=== PATIENT | female | born 1995 | race African-American/Black ===

== ENCOUNTER 2017-03-18 21:04 | Emergency (ER) | payer OTHER ==
[~2017-03-18] VITALS: Ht 180.3 cm; Wt 95.3 kg
--- NOTE | ~2017-03-18 | EKG ---
[address] [address] ELECTROCARDIOGRAM REPORT Name: GENTILENIKKI Room #: DEP KALLI Melo#: [id number] Admission: 03/18/17 Attend Phys: Discharge: 03/19/17 Date of : [birth year] Report #: [id number] THIS REPORT FOR: //name// [facility] ED Test Date: 2017-03-18 Test Time: 21:40:39 Pat Name: NIKKI GENTILE Department: Room: Gender: F Supply Chain Technician: : 1995 Requested By: Kurt Boothe Order Number: [id number] MD: Anant Mac Measurements Intervals [place] Rate: 84 P: 48 ND: 208 QRS: 42 QRSD: 91 T: 51 QT: 383 QTc: 453 Interpretive Statements Sinus rhythm Borderline prolonged ND interval No previous ECG available for comparison Electronically Signed On 03-19-2017 13:24:02 IT ADMINISTRATIVE ASSISTANT by Anant Mac [email or web address] <ELECTRONICALLY SIGNED> By: Anant Mac MD 03/19/17 1324 2140 2140 Anant Mac MD /MAK
[2017-03-18 21:50] LABS: HEMATOCRIT 33.6 % (37.0-47.0); HEMOGLOBIN 11.2 gm/dL (12.0-15.0); MCH 27.9 pg (26.0-34.0); MCHC 33.4 g/dL (28.0-37.0); MCV 83.6 fL (80.0-100.0); RBC 4.01 mil/uL (4.20-5.00); RDW 15.7 % (10.5-14.5); WBC 9.9 thou/uL (4.0-11.0)
[2017-03-18 22:00] LABS: URINE BILIRUBIN NEGATIVE (Negative); URINE BLOOD NEGATIVE (Negative); URINE COLOR YELLOW; URINE GLUCOSE-RANDOM* NEGATIVE (Negative); URINE KETONES NEGATIVE (Negative); URINE LEUKOCYTES-REFLEX NEGATIVE (Negative); URINE PROTEIN (DIPSTICK) NEGATIVE (Negative); URINE SPECIFIC GRAVITY <= 1.005 (1.005-1.035); URINE UROBILINOGEN 0.2 E.U./dl (0.2-1.0)
[2017-03-18 22:06] LABS: ANION GAP 6 mmol/L (7-16); BUN 12 mg/dL (7-18); CHLORIDE 108 mmol/L (98-107); CO2 27 mmol/L (21-32); CREATININE 0.9 mg/dL (0.6-1.0); GLUCOSE 102 mg/dL (74-106); POTASSIUM 3.6 mmol/L (3.5-5.1); SODIUM 141 mmol/L (136-145)
[2017-03-18 22:08] LABS: AMP/METHAMP Negative (Negative); BARBITURATES Negative (Negative); BENZODIAZEPINES Negative (Negative); COCAINE Negative (Negative); METHADONE Negative (Negative); OPIATES Negative (Negative); PCP Negative (Negative); THC POSITIVE (Negative)
[2017-03-18 22:15] LABS: TROPONIN-I < 0.04 ng/mL (<0.06)
[2017-03-18] MEDS ORDERED: ZPAK PO (23:28)
[2017-03-18] MEDS ORDERED: VENTOLIN HFA 1818 GM INH (23:28)
[2017-03-18 23:58] VITALS: BP 115/70
== END 2017-03-19 00:09 | disposition home or self-care (01) ==
LOC: ER 21:04
PROVIDERS: Emergency Medicine
DX: J45.901 Unspecified asthma with (acute) exacerbation (principal); F12.10 Cannabis abuse, uncomplicated; J18.9 Pneumonia, unspecified organism; J01.90 Acute sinusitis, unspecified; F17.210 Nicotine dependence, cigarettes, uncomplicated